=== PATIENT | female | born 1945 ===

== ENCOUNTER 2017-12-27 00:21 | Inpatient (IN) | payer MEDICARE, BC ==
[2017-12-27] VITALS (15 sets, daily range): BP systolic 101–150; BP diastolic 67–94; Ht 165.1 cm; Wt 73.0 kg
[~2017-12-27] VITALS: Ht 165.1 cm; Wt 73.0 kg
[~2017-12-27 00:21] MED LIST: ASPI-757 PO; LEVO-3 PO; ROS10 PO
[2017-12-27] MEDS ORDERED: ACETAMINOPHEN 500 MG TAB PO ONE (06:00)
[2017-12-27] MEDS ORDERED: ceFAZolin(*) 1 GM VIAL 1 GM in NS(*) 0.9% 100 ML ADDVANT BAG 100 ML IVPB ONE (06:00)
[2017-12-27] MEDS ORDERED: PREGABALIN 75 MG CAPSULE PO ONE (06:00)
[2017-12-27] MEDS ORDERED: MIDAZOLAM 2 MG/2 ML VIAL IVP PRN (06:00)
[2017-12-27] MEDS ORDERED: FAMOTIDINE 20 MG TAB PO ONE (06:00)
[2017-12-27] MEDS ORDERED: LIDOCAINE/SOD BICARB 8.4% SYR ID ONE (06:00)
[2017-12-27] MEDS ORDERED: NORMOSOL R SOLN(*) 1000 ML BAG 1,000 ML IV PRN (06:00)
[2017-12-27] MEDS ORDERED: FAMOTIDINE 20 MG/50 ML PREMIX IVPB ONE (06:00)
[2017-12-27] MEDS ORDERED: ceFAZolin(*) 2GM/D5W 50ML 50 ML IVPB ONE (06:00)
[2017-12-27] MEDS ORDERED: THROMBIN (BOVINE) 20,000 UNIT VIAL ONE (06:31)
[2017-12-27] MEDS ORDERED: fentaNYL CITR 250 MCG/5 ML AMP ONE (06:39)
[2017-12-27] MEDS ORDERED: ONDANSETRON 4 MG/2 ML VIAL ONE (06:42)
[2017-12-27] MEDS ORDERED: PROPOFOL EMUL(*) 10MG/ML 20 ML 80 ML ONE (06:42)
[2017-12-27] MEDS ORDERED: NS 0.9% 20 ML SDV 20 ML ONE (06:46)
[2017-12-27] MEDS ORDERED: REMIFENTANIL HCL 1 MG VIAL ONE (06:47)
[2017-12-27] MEDS ORDERED: KETAMINE HCL 200 MG/20 ML MDV ONE (06:52)
[2017-12-27] MEDS ORDERED: ROCURONIUM BROM 10 MG/ML 5 ML ONE ×2 (07:45)
[2017-12-27] MEDS ORDERED: PROPOFOL EMUL(*) 10MG/ML 20 ML 60 ML ONE ×2 (07:55→08:46)
[2017-12-27] MEDS ORDERED: PROPOFOL EMUL(*) 10MG/ML 20 ML 20 ML ONE (10:10)
[2017-12-27] MEDS ORDERED: ONDANSETRON 4 MG/2 ML VIAL IVP PRN (11:15)
[2017-12-27] MEDS ORDERED: BENZOCAINE/MENTHOL 1 EACH LOZG PO PRN (11:15)
[2017-12-27] MEDS ORDERED: diphenhydrAMINE 25 MG CAP PO PRN (11:15)
[2017-12-27] MEDS ORDERED: FLUSH 10 ML SYR IVP PRN (11:15)
[2017-12-27] MEDS ORDERED: BISACODYL 10 MG SUPP PR PRN (11:15)
[2017-12-27] MEDS ORDERED: oxyCODONE HCL 5 MG CAP PO PRN (11:15)
[2017-12-27] MEDS ORDERED: LR(*) 1000 ML BAG 1,000 ML IV PRN (11:15)
[2017-12-27] MEDS ORDERED: HYDROmorphone HCL 2 MG/ML SDV IVP PRN (11:15)
[2017-12-27] MEDS ORDERED: ACETAMINOPHEN(*)1000 MG/100 ML 100 ML IVPB PRN (11:15)
[2017-12-27] MEDS ORDERED: DIAZEPAM 5 MG TAB PO PRN (11:15)
[2017-12-27] MEDS ORDERED: MAGNESIUM HYDROXIDE* 30ML UDCP PO PRN (11:15)
[2017-12-27] MEDS ORDERED: fentaNYL CITR 100 MCG/2 ML AMP ONE (11:19)
--- NOTE | 2017-12-27 12:12 | OPERATIVE REPORT 1 ---
EVENT DATE: December 27, 2017 SURGEON: Dayday Saul M.D. ANESTHESIOLOGIST: Doron Jacques M.D. ANESTHESIA: General endotracheal. AUDIOVISUAL EQUIPMENT OPERATOR: RASHARD Fleming, CONTENT PRODUCTION SPECIALIST PREOPERATIVE DIAGNOSIS Lumbar third vertebra-lumbar fourth vertebra (L3-L4), lumbar fourth vertebra- lumbar fifth vertebra (L4-L5) and lumbar fifth vertebra-sacral first vertebra ( L5-S1) spinal stenosis with lumbar third vertebra-lumbar fourth vertebra (L3-L4 ) and lumbar fifth vertebra-sacral first vertebra (L5-S1) spondylolisthesis, right leg radiculopathy and neurogenic claudication. POSTOPERATIVE DIAGNOSIS Lumbar third vertebra-lumbar fourth vertebra (L3-L4), lumbar fourth vertebra- lumbar fifth vertebra (L4-L5) and lumbar fifth vertebra-sacral first vertebra ( L5-S1) spinal stenosis with lumbar third vertebra-lumbar fourth vertebra (L3-L4 ) and lumbar fifth vertebra-sacral first vertebra (L5-S1) spondylolisthesis, right leg radiculopathy and neurogenic claudication. PROCEDURE PERFORMED Lumbar third vertebra (L3) to sacral first vertebra (S1) laminectomy with lumbar third vertebra-lumbar fourth vertebra (L3-L4), lumbar fourth vertebra- lumbar fifth vertebra (l4-L5) and lumbar fifth vertebra-sacral first vertebra ( L5-S1) posterolateral instrumented fusion. IV FLUIDS 1800 mL. ESTIMATED BLOOD LOSS 180 mL. IMPLANTS 6.5 mm x 45 mm pedicle screws from [employer] x4, 6.5 mm x 40 mm pedicle screws from [employer] x2 and 6.5 mm x 35 mm pedicle screws from [employer] x2, 5.5 mm x 90 mm connecting rods from [employer] x2 and locking caps from [employer] x8. SPECIMENS None. DRAINS 10 mm flat Godfrey-Taveras drain through the lower back. COMPLICATIONS None. DISPOSITION Post-Anesthesia Care Unit. INDICATIONS Ms. Corrales is a 72-year-old female who presented with a chief complaint of radiating pain, numbness and tingling down the right leg in the anterolateral as well as posterior thigh and anterior and anterolateral aspect of the lower leg. She had a decrease in walking tolerance secondary to pain and had undergone injections, physical therapy and other treatments without any real improvement of her symptoms. Her physical examination was significant for limited extension in range of motion, normal strength and sensation in her lower extremities and her deep tendon reflexes were 1+ of bilateral patellar tendons and absent bilateral Achilles tendons. Her imaging studies revealed anterolisthesis at L3-L4 as well as L5-S1 where there were bilateral L5 pars defects present. The L5-S1 slip as well as the L3-L4 slips seemed to reduce at least to some degree when laying supine in the scanner. There was significant severe spinal stenosis at L3-L4 and L5-S1 with less severe but still present stenosis at L4-L5. Secondary to ongoing symptoms and failure to improve with nonsurgical care, Ms. Corrales was offered and elected to undergo L3 to S1 laminectomy and posterior lateral instrumented fusion. Prior to surgery, I explained in detail to the patient the possible risks of surgery. These risks include bleeding, infection, damage to surrounding structures, need for further surgery, persistent and/or worsening pain, nerve root injury, spinal fluid leak, meningitis, , blindness, sexual dysfunction , autonomic nervous system dysfunction and other unforeseen medical and surgical complications. An understanding that spinal surgery is more predictive at improving extremity discomfort than axial spine pain was stressed. DESCRIPTION OF PROCEDURE On the date of surgery, the patient was met in the preoperative hold area and all questions were answered. The operative site was identified and marked by myself. The patient was brought in good condition to the operating room and after succumbing to anesthesia was placed in the prone position on a Godfrey table. All bony protuberances and soft tissues were well padded in the standard fashion. Care was taken to maintain appropriate perfusion pressures during anesthesia. Preoperative antibiotics were administered according to the appropriate timing schedule. At the conclusion of the procedure, sponge and needle counts were correct x2. A final time-out was undertaken by members of the operating team to confirm correct patient, correct levels and correct surgery. The patient was prepped and draped in the standard sterile orthopedic fashion and a vertical incision was made over the intended surgical levels. Sharp dissection and electrocautery were used to dissect down to the posterior elements. Soft tissues were elevated off the posterior elements in a subperiosteal manner and a lateral radiograph was obtained to confirm correct spinal levels. Starting points for pedicle screws were exposed by dissecting down the lamina bilaterally at L3, L4 and L5 and then up the pars intra-articularis to its intersection with the transverse process and the superior articular process of each respective level. Once all transverse processes were exposed out to their tips, thrombin silk cigars were placed in the lateral gutters bilaterally. Attention was then turned to the laminectomy. The spinous processes of L3, L4 and L5 were removed using Leksell rongeur and a [employer] bone cutter. The laminas were then thinned down the midline, again using the Leksell rongeur. A curette was used to undermine the superior insertion of the ligamentum flavum from the inferior aspect of the L5 lamina. A midline decompression was then performed using #4 Kerrison punch. A Jay elevator was used to separate any dural adhesions from surrounding bone and soft tissue prior to use of the Kerrison punch. Once the midline decompression had been carried out at L3-L4, L4-L5 and L5-S1, a lateral recess decompression was then carried out in a similar fashion using #3 and #4 Kerrison rongeurs. A Jay elevator was used to mobilize the shoulders of the nerve roots and ensure adequate decompression of the neural elements at all levels. The Alfalfa was passed out the foramina bilaterally at each effective level to ensure adequate foraminal decompression as well. We then turned our attention to placement of pedicle screws. Pedicle screw starting points were identified at approximately the intersection of the pars intra-articularis, the mid point of the transverse process and the lateral aspect of the superior articular process of each respective vertebrae. A 5 mm high-speed bur was then used to decorticate the starting point. A Lenke type probe was advanced against resistance through the isthmus of the pedicle and into the vertebral body bilaterally at L3, L4, L5 and S1. A ball-tip probe was then used to palpate the pedicle screw tract, palpating superiorly, inferiorly, medially, laterally and distally to confirm absence of bony breaching. Appropriate length pedicle screws were selected and placed bilaterally at all four levels, after which the screws were tested individually with neurophysiologic monitoring. All tested within acceptable limits. 90 mm connecting rods were selected and placed in the tulips of the pedicle screws. Secondary to the significant slip at L5-S1, we used a reduction tool at that level to sequentially reduce the L5-S1 slip, alternating tightening the reduction device on the right and then the left, going back and forth until the jagdish was reduced into the tulips of the L5 screws. This also reduced the jagdish into the tulips at L3 and L4 and locking caps were placed. The reduction tools were removed and we used the final retail team leader with the torque limiting device to tighten all caps. The wound was then irrigated with copious sterile saline solution. Transverse processes were exposed and the high-speed bur was used to decorticate these as well as the sacral ala. A combination of local bone graft had been run through the bone mill, supplemented with demineralized bone matrix and cancellous chips was then packed into the lateral gutters bilaterally, ensuring that we laid bone along the previously decorticated transverse processes and all the way down to the sacral ala. The final radiograph was obtained and confirmed excellent placement of the spinal instrumentation. The wound was then closed in layers using a running Stratafix suture for the deep fascia and interrupted sutures for the subcutaneous tissue and running subcuticular skin stitch. Sponge and needle counts were correct x2. POSTOPERATIVE CARE PLAN Ms. Corrales will remain in the hospital until drain output drops below 40 mm/ shift. Once drain output is low enough and she has passed physical therapy she will be discharged home and will follow up in my clinic two weeks postoperatively for wound check and examination. She will be in a thoracolumbar sacral orthosis for a total of six weeks postoperatively. MEGHAN
[2017-12-27] MEDS ORDERED: CALC600T63 PO (12:46)
--- NOTE | 2017-12-27 13:17 | Hospitalist Consultation ---
History of Present Illness Requesting Physician Dr. Saul Reason for Consult Hypothyroidism, Hyperlipidemia Chief Complaint s/p lumbar fusion History of Present Illness She was admitted s/p lumbar fusion. It is reported the surgery went well and without complication. History Problems: (1) Hypothyroidism Status: Chronic (2) Hyperlipidemia Status: Chronic Home Meds Reported Medications Calcium Carbonate (CALCIUM) 600 Mg Tablet, 1200 MG PO DAILY 12/27/17 Aspirin (ASPIRIN) 325 Mg Tablet, 325 MG PO DAILY, TAB 12/20/17 Rosuvastatin Calcium (CRESTOR) 10 Mg Tab, 10 MG PO MON,WED,FRI, TAB 12/20/17 Levothyroxine Sodium (LEVOTHYROXINE SODIUM) 100 Mcg Tablet, 100 MCG PO QDAY, TAB 12/20/17 Allergies: Coded Allergies: codeine (Verified Allergy, Intermediate, FEELS CLAUSTROPHOBIC, 12/20/17) ANY PAIN MEDS WITH CODEINE prednisone (Verified Allergy, Intermediate, SHAKEY,ELEVATES BLOOD PRESSURE , 12/20/17) simvastatin (Verified Allergy, Mild, CONSTANT DRY MOUTH, 12/20/17) Patient History: FH: stroke MOTHER, FH: suicide FATHER, Hx Smoking: Yes (QUIT 2009, SMOKED 1-2 PPD FOR 50) Smoking Status: Former Smoker When Quit Tobacco?: 2009 Caffeine Intake: Soda Caffeine/Cups Per Day: 1 CAN DAILY Hx Alcohol Use: No Hx Substance Use Disorder: No Social Drug Use: Never History of IV Drug Use: No Review of Systems All Systems Reviewed/Normal: Yes, Except as Noted Exam Vital Signs Vital Signs Date Time Temp Pulse Resp B/P (MAP) Pulse Ox O2 Delivery O2 Flow Rate FiO2 12/27/17 13:00 53 133/79 (97) 98 12/27/17 12:55 Nasal Cannula 0.5 12/27/17 12:43 97.7 16 General Appearance: Alert, Awake, No Acute Distress, Afebrile Neuro: No Gross deficits Cardiovascular: Regular Rate and Rhythm Respiratory: No Respiratory Distress, Clear to Auscultation GI: Abd Soft and Non-Tender Psych: Alert & Oriented X3, Appropriate Mood & Affect Assessment and Plan Problems: (1) S/P lumbar fusion Status: Acute Assessment & Plan: Followed by Dr. Saul. (2) Hypothyroidism Status: Chronic Assessment & Plan: She is on chronic treatment with Levothyroxine. (3) Hyperlipidemia Status: Chronic Assessment & Plan: She is on chronic treatment with Crestor. Venous Thromboembolism Antithrombotics Is Pt On Any Antithrombotics?: No Exam Sepsis Risk: No Definite Risk STEVE MITCHELL MOLDING PLASTERER Dec 27, 2017 13:17
--- NOTE | 2017-12-27 14:00 | RADIOLOGY IMAGING REPORT ---
[place]AC[place] [facility] [place]IENT NAME: Prudecne Corrales : 1945 MR: [id number] V: [id number] EXAM DATE: ORDERING PHYSICIAN: LILI TAPIA TECHNOLOGIST: Location: [facility] Patient: Prudence Corrales : 1945 Visit/Account:[id number] Date of Sevice: 12/27/2017 Exam type: LUMBAR SPINE 1 VIEW History: LUMBAR DISC HERNIATION, FUSION L3-S1 Comparison: None. Findings: Two crosstable lateral portable intraoperative views lumbar spine were submitted. Postsurgical bowers es from posterior lumbar interbody fusion from L3 to S1 assuming there are five lumbar type vertebral bodies. There is a 9 mm retrolisthesis of L4 with respect to L5 IMPRESSION: 1. As above Report Dictated By: Sarah Bahena MD at 12/27/2017 1:54 PM Report E-Signed By: Sarah Bahena MD at 12/27/2017 1:56 PM WSN:[email or web address]
[2017-12-27] MEDS: ceFAZolin(*) 2GM/D5W 50ML 50 ML IVPB SCH (17:02)
[2017-12-27] MEDS: APAP/HYDROCODONE 325/5 TAB PO PRN ×2 (17:06→21:43)
[2017-12-27] MEDS: DOCUSATE SODIUM 100 MG CAP PO SCH (21:38)
[2017-12-28] MEDS: ceFAZolin(*) 2GM/D5W 50ML 50 ML IVPB SCH ×2 (01:13→08:41)
[2017-12-28] MEDS: APAP/HYDROCODONE 325/5 TAB PO PRN ×5 (02:20→22:34)
[2017-12-28] MEDS: LEVOTHYROXINE SOD 0.1 MG TAB PO SCH (05:45)
[2017-12-28 07:24] VITALS: BP 82/60
[2017-12-28] MEDS: DOCUSATE SODIUM 100 MG CAP PO SCH ×2 (08:41→21:14)
--- NOTE | 2017-12-28 09:54 | Hospitalist Progress Note ---
Subjective Progress Notes Subjective She has complaints of pain to the surgical site this morning. She had no acute events overnight. Patient Complains of: Neurological: No: Dizziness Cardiovascular: No: Chest Pain, Orthostatic Hypotension Respiratory: No: Shortness of Breath Physical Exam Vital Signs Date Time Temp Pulse Resp B/P (MAP) Pulse Ox O2 Delivery O2 Flow Rate FiO2 12/28/17 07:29 95 Nasal Cannula 1.0 12/28/17 07:24 98.6 71 18 82/60 (67) Intake and Output 12/29/17 07:00 Intake Total 590 ml Output Total 20 ml Balance 570 ml Intake Oral 540 ml IV Total 50 ml Drainage Total 20 ml General Appearance: Alert, Awake, No Acute Distress, Afebrile Neuro: No Gross deficits Cardiovascular: Regular Rate and Rhythm Respiratory: No Respiratory Distress, Clear to Auscultation GI: Soft and Non-Tender Psych: Alert & Oriented X3, Appropriate Mood & Affect Assessment and Plan Problems: (1) S/P lumbar fusion Status: Acute Assessment & Plan: Followed by Dr. Saul. (2) Hypothyroidism Status: Chronic Assessment & Plan: She is on chronic treatment with Levothyroxine. (3) Hyperlipidemia Status: Chronic Assessment & Plan: She is on chronic treatment with Crestor. Exam Sepsis Risk: No Definite Risk STEVE MITCHELL BALLISTICS EXPERT Dec 28, 2017 09:54
--- NOTE | 2017-12-28 10:09 | RADIOLOGY IMAGING REPORT ---
FACILITY: [facility] - [place] PATIENT NAME: Prudence Corrales : 1945 MR: [id number] V: [id number] EXAM DATE: ORDERING PHYSICIAN: LILI TAPIA TECHNOLOGIST: Location: [facility] - [place] Patient: Prudence Corrales : 1945 Visit/Account:[id number] Date of Sevice: 12/28/2017 Exam type: LUMBAR SPINE 2 OR 3 VIEW History: lumbar surgery Comparison: December 27, 2017. Findings: AP and lateral views of the lumbar spine demonstrate postsurgical changes from posterior lumbar inter body fusion with posterior decompression at L3-S1. The previously noted 9 mm anterior listhesis of L 4 with respect to L5 now measures 6 mm on the standing lateral view. There is now an 8 mm anterior l isthesis of L5 with respect to S1. Moderate disc space narrowing is present at L5-S1. A surgical dr morocho projects over the dorsal aspect of the lower lumbar spine IMPRESSION: 1. Postsurgical changes from posterior lumbar interbody fusion from L3 to S1 as described above Report Dictated By: Sarah Bahena MD at 12/28/2017 10:02 AM Report E-Signed By: Sarah Bahena MD at 12/28/2017 10:05 AM PANKAJN:[email or web address]
[2017-12-28 10:52] VITALS: BP 88/54
[2017-12-28 14:59] VITALS: BP 96/56
[2017-12-28 16:35] VITALS: BP 120/59
[2017-12-28 21:22] VITALS: BP 100/61
[2017-12-28 23:37] VITALS: BP 105/64
[2017-12-29] VITALS (7 sets, daily range): BP systolic 104–126; BP diastolic 48–74
[2017-12-29] MEDS: LEVOTHYROXINE SOD 0.1 MG TAB PO SCH (05:37)
--- NOTE | 2017-12-29 07:01 | EKG ---
FACILITY: [facility] - [place] PATIENT NAME: DANII NIÑO : [id number] MR: [id number] V: [id number] EXAM DATE: ORDERING PHYSICIAN: SKYLER DUTTON TECHNOLOGIST: ABRAHAN Test Reason : CHEST TIGHTNESS Blood Pressure : / mmHG Vent. Rate : 074 BPM Atrial Rate : 074 BPM P-R Int : 132 ms QRS Dur : 082 ms QT Int : 362 ms P-R-T Axes : 063 079 047 degrees QTc Int : 401 ms Normal sinus rhythm Nonspecific T wave abnormality Abnormal ECG No previous ECGs available Confirmed by Skyler Herrera ([id number]) on 12/29/2017 7:49:52 AM Referred By: Confirmed By:Skyler Dutton
[2017-12-29] MEDS: ACETAMINOPHEN 500 MG TAB PO PRN ×3 (08:35→23:38)
[2017-12-29] MEDS: DOCUSATE SODIUM 100 MG CAP PO SCH ×2 (08:35→21:10)
[2017-12-29] MEDS ORDERED: ROSUVASTATIN CALCIUM 10 MG TAB PO SCH (09:00)
--- NOTE | 2017-12-29 14:31 | Hospitalist Progress Note ---
Subjective Progress Notes Subjective She had complaints of epigastric pain and nausea last night. EKG and troponin were performed with negative results. She reports she believes the brace is causing the pain. She will discuss with PT today regarding brace issues. Her nausea has resolved. Patient Complains of: Cardiovascular: No: Chest Pain Respiratory: No: Shortness of Breath Gastrointestinal: No Nausea Physical Exam Vital Signs Date Time Temp Pulse Resp B/P (MAP) Pulse Ox O2 Delivery O2 Flow Rate FiO2 12/29/17 14:05 93 Nasal Cannula 0.5 12/29/17 11:49 99.0 78 10 106/61 (76) Intake and Output 12/30/17 01:00 Intake Total 540 ml Output Total 150 ml Balance 390 ml Intake Oral 540 ml Drainage Total 150 ml # Voids 6 General Appearance: Alert, Awake, No Acute Distress, Afebrile Neuro: No Gross deficits Cardiovascular: Regular Rate and Rhythm Respiratory: No Respiratory Distress, Clear to Auscultation GI: Soft and Non-Tender Psych: Alert & Oriented X3, Appropriate Mood & Affect Assessment and Plan Problems: (1) S/P lumbar fusion Status: Acute Assessment & Plan: Followed by Dr. Saul. (2) Hypothyroidism Status: Chronic Assessment & Plan: She is on chronic treatment with Levothyroxine. (3) Hyperlipidemia Status: Chronic Assessment & Plan: She is on chronic treatment with Crestor. Exam Sepsis Risk: No Definite Risk STEVE MITCHELL CRAYON PAINTER Dec 29, 2017 14:31
[2017-12-30 02:54] VITALS: BP 131/67
[2017-12-30] MEDS: ACETAMINOPHEN 500 MG TAB PO PRN (05:58)
[2017-12-30] MEDS: LEVOTHYROXINE SOD 0.1 MG TAB PO SCH (05:58)
[2017-12-30 08:07] VITALS: BP 107/68
[2017-12-30] MEDS: DOCUSATE SODIUM 100 MG CAP PO SCH (09:25)
--- NOTE | 2017-12-30 11:13 | Hospitalist Progress Note ---
Subjective Progress Notes Subjective She has no complaints this morning. She had no acute events overnight. Patient Complains of: Cardiovascular: No: Chest Pain Respiratory: No: Shortness of Breath Physical Exam Vital Signs Date Time Temp Pulse Resp B/P (MAP) Pulse Ox O2 Delivery O2 Flow Rate FiO2 12/30/17 09:22 79 12/30/17 08:07 98.9 78 107/68 (81) Room Air 12/30/17 02:54 18 1.0 Intake and Output 12/31/17 07:00 Intake Total 200 ml Balance 200 ml Intake Oral 200 ml # Voids 2 General Appearance: Alert, Awake, No Acute Distress, Afebrile Neuro: No Gross deficits Cardiovascular: Regular Rate and Rhythm Respiratory: No Respiratory Distress, Clear to Auscultation GI: Soft and Non-Tender Psych: Alert & Oriented X3, Appropriate Mood & Affect Assessment and Plan Problems: (1) S/P lumbar fusion Status: Acute Assessment & Plan: Followed by Dr. Saul. (2) Hypothyroidism Status: Chronic Assessment & Plan: She is on chronic treatment with Levothyroxine. (3) Hyperlipidemia Status: Chronic Assessment & Plan: She is on chronic treatment with Crestor. Exam Sepsis Risk: No Definite Risk STEVE MITCHELL BALANCE BRIDGE ASSEMBLER Dec 30, 2017 11:12
== END 2017-12-30 12:00 | disposition home or self-care (01) | DRG 460 ==
LOC: OR 00:21 → MED 12:30
PROVIDERS: ADMIT Orthopaedic Surgery; ATTEND Orthopaedic Surgery
PROC: 0SG3071 Fusion of Lumbosacral Joint with Autologous Tissue Substitute, Posterior Approach, Posterior Column, Open Approach (ICD-10-PCS; 2017-12-27)
PROC: 0SG0071 Fusion of Lumbar Vertebral Joint with Autologous Tissue Substitute, Posterior Approach, Posterior Column, Open Approach (ICD-10-PCS; principal; 2017-12-27 07:07)
DX: M48.062 Spinal stenosis, lumbar region with neurogenic claudication (principal); M43.16 Spondylolisthesis, lumbar region; M54.16 Radiculopathy, lumbar region; E03.9 Hypothyroidism, unspecified; E78.5 Hyperlipidemia, unspecified; Z96.651 Presence of right artificial knee joint
CPT/HCPCS: 36415; 72020; 72100; 84484; 86850; 86900; 86901; 93005; 97161; C1713; J0131; J0690; J2405; J2704; J3010; J3490; J7050; J7120